=== PATIENT | male | born 1990 | race American Indian/Alaskan Native ===

== ENCOUNTER 2017-09-28 12:24 | Emergency (ER) | payer SELFPAY ==
[2017-09-28 12:49] VITALS: BP 128/81
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
--- NOTE | 2017-09-28 14:53 | XRay Report ---
RIGHT RIBS, 3 VIEWS: History: pain. Routine views of the rib cage demonstrate normal mineralization with no significant contour abnormalities, fractures or destructive lesions. PA view of the chest demonstrates no underlying cardiopulmonary abnormalities, fluid or pneumothorax. IMPRESSION: Unremarkable right rib series.
[2017-09-28] MEDS ORDERED: TORADOL IM ONE (15:31)
[2017-09-28] MEDS ORDERED: NORCO 7.5/325 PO ONE (15:31)
== END 2017-09-28 15:54 | disposition home or self-care (01) ==
LOC: ED 12:24
DX: S29.9XXA Unspecified injury of thorax, initial encounter (principal); F17.200 Nicotine dependence, unspecified, uncomplicated; Y09 Assault by unspecified means; Y93.89 Activity, other specified; Y92.89 Other specified places as the place of occurrence of the external cause; Y99.8 Other external cause status
CPT/HCPCS: 71101; 96372; 99283; J1885